=== PATIENT | female | born 1970 | race Caucasian/White ===

== ENCOUNTER 2016-04-27 15:55 | Emergency (ER) | payer MEDICAID, OTHER ==
[~2016-04-27] VITALS: Ht 172.7 cm; Wt 628.2 kg
[2016-04-27] MEDS ORDERED: ONDANSETRON HCL/PF 4 MG/2 ML VIAL IVP ONE (16:30)
[2016-04-27] MEDS ORDERED: IV NS 0.9% 1,000 ML BAG IV ONE (16:30)
[2016-04-27 16:40] LABS: BASOPHILS % (AUTO) 0.6 % (0.0-2.0); DIFF TOTAL % 100 %; EOSINOPHILS # (AUTO) 0.2 /CMM (0.0-0.7); EOSINOPHILS % (AUTO) 1.8 % (0.0-6.0); HEMATOCRIT 41 % (33-45); HEMOGLOBIN 13.7 g/dL (11.5-14.8); LYMPHOCYTES % (AUTO) 22.9 % (20.0-44.0); MEAN CORPUSCULAR HEMOGLOBIN 27 PG (26.0-33.0); MEAN CORPUSCULAR HGB CONC 33 g/dl (31.0-36.0); MEAN CORPUSCULAR VOLUME 80 fL (82-100); MONOCYTES # (AUTO) 0.5 /CMM (0.1-1.30); MONOCYTES % (AUTO) 5.7 % (2.0-12.0); PLATELET COUNT (AUTO) 285 /CMM (150-450); RED BLOOD CELL COUNT(AUTO) 5.16 MIL/uL (4.0-5.2); WHITE BLOOD COUNT (AUTO) 8.7 K/uL (4.3-11.0)
[2016-04-27 17:01] LABS: CALCIUM, SERUM 8.8 mg/dL (8.5-10.1); CREATININE 0.8 mg/dL (0.6-1.3); POTASSIUM 3.8 mmol/L (3.5-5.1)
[2016-04-27 17:08] LABS: ALBUMIN 3.6 g/dL (3.4-5.0); BILIRUBIN,DIRECT 0.1 mg/dL (0.0-0.2); BILIRUBIN,TOTAL 0.3 mg/dL (0.2-1.0); INDIRECT BILIRUBIN 0.2 mg/dL (0.0-1.1); TOTAL PROTEIN, SERUM 7.7 g/dL (6.4-8.2)
[2016-04-27] MEDS ORDERED: IV SET PRIMARY 1 EA INFUS.SET MC ONE (17:33)
[2016-04-27] MEDS ORDERED: IV NS 0.9% 1,000 ML ONE (17:33)
[2016-04-27] MEDS ORDERED: ONDANSETRON HCL/PF 4 MG/2 ML VIAL ONE (17:33)
[2016-04-27 18:03] LABS: KETONES,URINE Trace (NEGATIVE); LEUKOCYTE ESTERASE ,URINE Negative (NEGATIVE)
[2016-04-27 18:09] LABS: ADD UA MICROSCOPIC YES
[2016-04-27] MEDS ORDERED: IOHEXOL-300 100 ML VIAL IV ONE (18:51)
[2016-04-27] MEDS ORDERED: IV NS 0.9% 250 ML IV ONE (18:51)
[2016-04-27] MEDS ORDERED: CT SWABBABLE VALVE TRANS SET 1 EA INFUS.SET MC ONE (18:51)
[2016-04-27 18:52] LABS: ADD URINE CULTURE NO; RBC,URINE 81-100 /HPF (0-2); WBC,URINE 0-2 /HPF (0-3)
[2016-04-27 20:41] VITALS: BP 132/75
== END 2016-04-27 20:42 | disposition home or self-care (01) ==
LOC: ER 15:58
DX: K52.9 Noninfective gastroenteritis and colitis, unspecified (principal); R73.9 Hyperglycemia, unspecified; Z98.890 Other specified postprocedural states
CPT/HCPCS: 36415; 80048-TC; 80076-TC; 81000-TC; 83690-TC; 85025-TC; A4606; J2405; J7030; J7050; Q9967; Z7610

== ENCOUNTER 2018-02-08 00:21 | Emergency (ER) | payer OTHER ==
[~2018-02-08] VITALS: Ht 172.7 cm; Wt 102.1 kg
--- NOTE | 2018-02-08 01:26 | NUR ---
PT AMBULATORY W/ STEADY GAIT, C/O RT LOWER BACK PAIN S/P SLIPPED ON SIDEWALK X LAST WEDNESDAY, DENIES ANY HEAD TRAUMA, NO KO, REPORT PAIN PROGRESSIVELY GETTING WORSE TODAY. URINE OBTAINED & SENT TO LAB. PT IN GOWN, PENDING FURTHER DANILO BEDOLLA MD.
--- NOTE | 2018-02-08 01:45 | NUR ---
HCG WAIVER SIGNED AND GIVEN TO MUD ANALYSIS WELL LOGGING CAPTAIN. PT LEFT FOR CT VIA .
[2018-02-08] MEDS ORDERED: HYDROCODONE/APAP 5/325MG 1 EACH TABLET PO ONE (02:00)
--- NOTE | 2018-02-08 02:08 | NUR ---
PT RETURNED FROM CT.
[2018-02-08] MEDS ORDERED: HYDROCODONE/APAP 5/325MG 1 EACH TABLET ONE (02:09)
--- NOTE | 2018-02-08 02:10 | NUR ---
PT REC'D MEDICATION ORDERED.
--- NOTE | 2018-02-08 03:14 | NUR ---
Patient discharged to home in stable condition. Written and verbal after care instructions given. Patient verbalizes understanding of instruction.
[2018-02-08 03:15] VITALS: BP 142/75
== END 2018-02-08 03:16 | disposition home or self-care (01) ==
LOC: ER 00:21
DX: S39.82XA Other specified injuries of lower back, initial encounter (principal); W01.0XXA Fall on same level from slipping, tripping and stumbling without subsequent striking against object, initial encounter; Y93.89 Activity, other specified; Y92.89 Other specified places as the place of occurrence of the external cause; Y99.8 Other external cause status
CPT/HCPCS: 72131-TC; 72192-TC; A4606; Z7610

== ENCOUNTER 2019-11-08 23:30 | Emergency (ER) | payer OTHER ==
[~2019-11-08] VITALS: Ht 172.7 cm; Wt 102.1 kg
[2019-11-08 23:30] VITALS: BP 146/83
--- NOTE | 2019-11-08 23:53 | NUR ---
PATIENT CAME TO ER BED 9 C/O LOWER BACK PAIN. PATIENT STATES THAT SHE HAS A HERNIATED DISC SINCE 2 YEARS AGO. PATIENT STATES THAT YESTERDAY SHE WAS CARRYING A LOT OF SHOPPING BAGS WHEN HER LOWER BACK STARTED TO HURT. PATIENT STATES THAT SHE FEELS RELIEF WHEN SHE SITS. PATIENT ALSO HAS LEFT WRIST PAIN SINCE YESTERDAY. PAINFUL UPON PALPATION. LESS SENSATION ON THE LEFT HAND AND FOREARM THAN THE RIGHT HAND AND FOREARM. PATIENT HAS FULL RANGE OF MOTION ON THE LEFT AND RIGHT ARM. PULSES ARE STRONG AND EQUAL BILATERALLY.
[2019-11-08] MEDS ORDERED: KETOROLAC TROMETHAMINE INJ 60 MG/2 ML VIAL IM ONE (23:58)
[2019-11-08] MEDS ORDERED: LORAZEPAM INJ 2 MG/ML VIAL ONE (23:59)
[2019-11-09] MEDS ORDERED: LORAZEPAM INJ 2 MG/ML VIAL IM ONE
[2019-11-09] MEDS ORDERED: KETOROLAC TROMETHAMINE INJ 60 MG/2 ML VIAL IM ONE
--- NOTE | 2019-11-09 00:12 | NUR ---
PATIENT'S SON IS DRIVING THE PATIENT HOME.
--- NOTE | 2019-11-09 00:12 | NUR ---
Patient discharged to home in stable condition. Written and verbal after care instructions given. Patient verbalizes understanding of instruction.
== END 2019-11-09 00:13 | disposition home or self-care (01) ==
LOC: ER 23:36
DX: M54.30 Sciatica, unspecified side (principal); G89.29 Other chronic pain
CPT/HCPCS: 96372 ×2; 99284; J1885; J2060

== ENCOUNTER 2020-05-30 17:28 | Emergency (ER) | payer OTHER ==
[~2020-05-30] VITALS: Ht 167.6 cm; Wt 95.3 kg
--- NOTE | 2020-05-30 17:30 | NUR ---
THE PATEINT BIB SELF C/O LOWER BACK PAIN RADIATES TO L BUTTOCKS AREA. PATIENT IS PLACED IN ER BED #1. IN ROOM AIR AND DENIES SOB. RESPIRATION REGULAR AND UNLABORED. WILL CONTINUE TO MONITOR THE PATIENT.
[2020-05-30] MEDS ORDERED: KETOROLAC TROMETHAMINE INJ 30 MG/ML VIAL ONE (17:58)
[2020-05-30] MEDS ORDERED: CYCLOBENZAPRINE 10 MG TABLET ONE (17:58)
[2020-05-30] MEDS: CYCLOBENZAPRINE 10 MG TABLET PO ONE (17:59)
[2020-05-30] MEDS: IV NS 0.9% 1,000 ML BAG IV ONE (18:14)
[2020-05-30] MEDS: KETOROLAC TROMETHAMINE INJ 30 MG/ML VIAL IV ONE (18:15)
[2020-05-30 18:34] LABS: BILIRUBIN,URINE Negative (NEGATIVE); COLOR,URINE YELLOW (YELLOW); LEUKOCYTE ESTERASE ,URINE Negative (NEGATIVE); NITRITE, URINE Negative (NEGATIVE); PROTEIN,URINE Negative (NEGATIVE); UGLUCOSE >=1000 mg/dL (NEGATIVE); UROBILINOGEN,URINE 0.2 EU/dL (0.2)
[2020-05-30 18:48] LABS: BACTERIA,URINE None seen /HPF (None Seen); SQUAMOUS EPITHELIAL CELL,UR Few /HPF (None Seen); WBC,URINE 0-2 /HPF (0-3)
[2020-05-30] MEDS ORDERED: TRAM50TA2 PO (19:04)
[2020-05-30] MEDS ORDERED: CYCL5TAB PO (19:04)
[2020-05-30] MEDS ORDERED: NAPR500T6 PO (19:04)
--- NOTE | 2020-05-30 19:05 | NUR ---
REC;D REPORT FROM JANN SIMS FOR KARISSA
--- NOTE | 2020-05-30 19:26 | NUR ---
Patient discharged to home in stable condition. Written and verbal after care instructions given. Patient verbalizes understanding of instruction. IV removed. Catheter intact and site benign. Pressure and 4x4 applied to site. No bleeding noted. Pt ambulatory with a steady gait
[2020-05-30 19:37] VITALS: BP 150/97
== END 2020-05-30 19:26 | disposition home or self-care (01) ==
LOC: ER 17:32
DX: M54.42 Lumbago with sciatica, left side (principal); E11.65 Type 2 diabetes mellitus with hyperglycemia; I10 Essential (primary) hypertension; Z79.899 Other long term (current) drug therapy
CPT/HCPCS: 81001; 82962; 96361; 96374; 99283; J1885; J7030

== ENCOUNTER 2022-01-11 15:00 | Emergency (ER) | payer OTHER ==
[~2022-01-11] VITALS: Ht 167.6 cm; Wt 99.8 kg
[~2022-01-11 15:00] MED LIST: CYCL5TAB PO; NAPR500T6 PO; TRAM50TA2 PO
--- NOTE | 2022-01-11 15:20 | NUR ---
LAURENT C/O LBP WITH NUMBNESS ON SADA ARMS. DENIES TRAUMA HX OF NEUROPATHY ON ARMS & CHRONIC BP PER PT. AMBULATORY, PLACED ON BED, AAOX4, IN PAIN 12/06 PS.
[2022-01-11] MEDS ORDERED: KETOROLAC TROMETHAMINE 15 MG/ML VIAL ONE (15:56)
[2022-01-11] MEDS ORDERED: ONDANSETRON HCL/PF 4 MG/2 ML VIAL ONE (15:56)
[2022-01-11] MEDS ORDERED: IV NS 0.9% 1,000 ML IV ONE (16:00)
[2022-01-11] MEDS ORDERED: KETOROLAC TROMETHAMINE INJ 30 MG/ML VIAL IV ONE (16:00)
[2022-01-11] MEDS ORDERED: ONDANSETRON HCL/PF 4 MG/2 ML VIAL IV ONE (16:00)
--- NOTE | 2022-01-11 16:10 | NUR ---
blood drawn and sent to lab
[2022-01-11 16:17] LABS: BASOPHILS % (AUTO) 0.3 % (0.0-2.0); HEMATOCRIT 43 % (33-45); LYMPHOCYTES # (AUTO) 1.6 K/uL (0.8-4.8); LYMPHOCYTES % (AUTO) 17.5 % (20.0-44.0); MEAN CORPUSCULAR HGB CONC 33 g/dl (31.0-36.0); MEAN CORPUSCULAR VOLUME 83 fL (82-100); MONOCYTES # (AUTO) 0.4 K/uL (0.1-1.30); MONOCYTES % (AUTO) 4.5 % (2.0-12.0); NEUTROPHILS # (AUTO) 6.8 K/uL (1.8-8.9); NEUTROPHILS % (AUTO) 75.7 % (43.0-81.0); PLATELET COUNT (AUTO) 274 K/uL (150-450); RED BLOOD CELL COUNT(AUTO) 5.18 MIL/uL (4.0-5.2)
[2022-01-11 16:42] LABS: ALBUMIN 3.6 g/dL (3.4-5.0); BILIRUBIN,TOTAL 0.5 mg/dL (0.2-1.0); CALCIUM, SERUM 8.9 mg/dL (8.5-10.1); CREATININE 0.9 mg/dL (0.6-1.3); POTASSIUM 4.2 mmol/L (3.5-5.1)
--- NOTE | 2022-01-11 17:02 | NUR ---
URINE SAMPLE SENT TO LAB
[2022-01-11 17:42] LABS: BILIRUBIN,URINE NEGATIVE (NEGATIVE); COLOR,URINE YELLOW (YELLOW); LEUKOCYTE ESTERASE ,URINE NEGATIVE (NEGATIVE); NITRITE, URINE NEGATIVE (NEGATIVE); PH,URINE 5.5 (5.0-8.0); PROTEIN,URINE NEGATIVE (NEGATIVE); UGLUCOSE >=1000 mg/dL (NEGATIVE); UROBILINOGEN,URINE 0.2 EU/dL (0.2)
[2022-01-11 18:04] LABS: BACTERIA,URINE None seen /HPF (None Seen); RBC,URINE 0-2 /HPF (0-2); SQUAMOUS EPITHELIAL CELL,UR 0-2 /HPF (None Seen); WBC,URINE 0-2 /HPF (0-3)
--- NOTE | 2022-01-11 18:45 | NUR ---
IV removed. Catheter intact and site benign. Pressure and 4x4 applied to site. No bleeding noted.Patient discharged to home in stable condition. Written and verbal after care instructions given. Patient verbalizes understanding of instruction.
[2022-01-11 18:51] VITALS: BP 133/70
== END 2022-01-11 18:45 | disposition home or self-care (01) ==
LOC: ER 15:03
DX: E11.65 Type 2 diabetes mellitus with hyperglycemia (principal); R11.10 Vomiting, unspecified; M54.40 Lumbago with sciatica, unspecified side; Z79.899 Other long term (current) drug therapy
CPT/HCPCS: 99284; 96374; 96361; 96375; 85025; 83690; 81001; 36415; 80053; J2405; J7030; J1885

== ENCOUNTER 2022-04-25 10:06 | Inpatient (IN) | payer OTHER ==
[~2022-04-25] VITALS: Ht 167.6 cm; Wt 121.1 kg
--- NOTE | 2022-04-25 10:21 | NUR ---
BIBS W/ C/O RIGHT-SIDED HEADACHE, RIGHT-SIDED FACE AND ARM NUMBNESS, AND LEFT FACIAL DROOP STARTED AT 3AM YESTERDAY. TO ER BED 9.
[2022-04-25 10:50] LABS: BASOPHILS % (AUTO) 0.3 % (0.0-2.0); EOSINOPHILS % (AUTO) 1.9 % (0.0-6.0); HEMATOCRIT 39 % (33-45); HEMOGLOBIN 12.6 g/dL (11.5-14.8); LYMPHOCYTES # (AUTO) 2.5 K/uL (0.8-4.8); LYMPHOCYTES % (AUTO) 23.6 % (20.0-44.0); MEAN CORPUSCULAR HGB CONC 32 g/dl (31.0-36.0); MEAN CORPUSCULAR VOLUME 83 fL (82-100); MONOCYTES # (AUTO) 0.7 K/uL (0.1-1.30); MONOCYTES % (AUTO) 6.9 % (2.0-12.0); NEUTROPHILS % (AUTO) 67.3 % (43.0-81.0); PLATELET COUNT (AUTO) 268 K/uL (150-450); RED BLOOD CELL COUNT(AUTO) 4.75 MIL/uL (4.0-5.2); WHITE BLOOD COUNT (AUTO) 10.4 K/uL (4.3-11.0)
--- NOTE | 2022-04-25 10:50 | NUR ---
COVID SWAB OBTAINED
--- NOTE | 2022-04-25 10:55 | NUR ---
MOVE SHEET SUBMITTED.
[2022-04-25] MEDS ORDERED: ASPIRIN 325 MG TABLET PO ONE (11:00)
--- NOTE | 2022-04-25 11:00 | NUR ---
NOLA #20 ESTABLISHED, BLOOD DRAWN AND SENT TO LAB
[2022-04-25] MEDS ORDERED: ASPIRIN 325 MG TABLET ONE (11:04)
[2022-04-25 11:14] LABS: CARBON DIOXIDE 25 mmol/L (21-32); CHLORIDE 100 mmol/L (98-107); CREATININE 0.7 mg/dL (0.6-1.3); GLUCOSE 251 mg/dL (74-106); POTASSIUM 4.6 mmol/L (3.5-5.1); SODIUM SERUM 133 mmol/L (136-145); UREA NITROGEN, BLOOD 15 mg/dL (7-18)
[2022-04-25 11:16] LABS: ALANINE AMINOTRANSFERASE 40 U/L (12-78); ALBUMIN 3.2 g/dL (3.4-5.0); ALKALINE PHOSPHATASE 123 U/L (46-116); ASPARTATE AMINOTRANSFERASE 20 U/L (15-37); BILIRUBIN,DIRECT 0.1 mg/dL (0.0-0.2); BILIRUBIN,TOTAL 0.4 mg/dL (0.2-1.0); TOTAL PROTEIN, SERUM 7.6 g/dL (6.4-8.2)
--- NOTE | 2022-04-25 11:38 | NUR ---
URINE SAMPLE OBTAINED AND PLACED IN DROP OFF BIN
[2022-04-25] MEDS ORDERED: IOHEXOL-350 100 ML VIAL IV ONE (11:40)
[2022-04-25 12:03] LABS: BILIRUBIN,URINE NEGATIVE (NEGATIVE); COLOR,URINE YELLOW (YELLOW); LEUKOCYTE ESTERASE ,URINE NEGATIVE (NEGATIVE); NITRITE, URINE NEGATIVE (NEGATIVE); PH,URINE 5.5 (5.0-8.0); PROTEIN,URINE NEGATIVE (NEGATIVE); UGLUCOSE 3+ mg/dL (NEGATIVE); UROBILINOGEN,URINE 0.2 EU/dL (0.2)
--- NOTE | 2022-04-25 12:54 | NUR ---
[facility] CALLED POCKET ASSEMBLER PAGED.
[2022-04-25] MEDS ORDERED: ASPI-1420 PO (13:26)
[2022-04-25] MEDS ORDERED: LURA80TA PO (13:26)
[2022-04-25] MEDS ORDERED: METO-357 PO (13:26)
[2022-04-25] MEDS ORDERED: BENZ0.5T43 PO (13:26)
[2022-04-25] MEDS ORDERED: TRAZ-257 PO (13:26)
[2022-04-25] MEDS ORDERED: INSU500I SQ (13:26)
[2022-04-25] MEDS ORDERED: ERTU15TA PO (13:26)
[2022-04-25] MEDS ORDERED: OMEP40CA21 PO (13:26)
[2022-04-25] MEDS ORDERED: GLIM4TAB37 PO (13:26)
[2022-04-25] MEDS ORDERED: GABA300C PO (13:26)
[2022-04-25] MEDS ORDERED: SERT100T12 PO (13:26)
--- NOTE | 2022-04-25 13:51 | NUR ---
REPORT GIVEN TO JANN GLORIA IN 3W
[2022-04-25 14:00] VITALS: BP 151/84
[2022-04-25] MEDS ORDERED: ONDANSETRON HCL/PF 4 MG/2 ML VIAL IVP PRN (14:00)
[2022-04-25] MEDS ORDERED: ACETAMINOPHEN 325 MG TABLET PO PRN (14:00)
[2022-04-25] MEDS ORDERED: DEXTROSE 50%-WATER 50 ML DISP.SYRIN IV PRN (14:00)
--- NOTE | 2022-04-25 14:00 | NUR ---
PATIENT ADMITTED FROM ER WITH CHANDANA REPORTED BY GABY /ER. ADMIT DX IS R/O CVA. PATIENT AO X 4 WITH COHERENT SPEECH AND GOOD HISTORIAN RESPONSIBLE. PATIENT DENIES ALL EXTREMITIES WEAKNESS AND STABLE AMBULATE, BUT FACIAL NUMBNESS ON RIGHT SIDE AND RIGHT EYE DOUBLE VISION. VISUAL FIELD/CONFRONTATION, NEURO CHECK AND NHISS DONE. WILL CONTINUE TO MONITOR.
--- NOTE | 2022-04-25 14:05 | NUR ---
PATIENT TRANSFERRED TO [facility], ALL CARE ENDORSED TO JANN GLORIA
[2022-04-25] MEDS: HYDROCODONE/APAP 5/325MG TABLET PO PRN ×2 (14:55→21:41)
[2022-04-25] MEDS ORDERED: ENOXAPARIN SODIUM 40 MG/0.4 ML DISP.SYRIN SQ SCH (15:00)
[2022-04-25] MEDS: ASPIRIN 81 MG TAB.CHEW PO SCH (15:24)
[2022-04-25] MEDS: predniSONE 20 MG TABLET PO SCH (15:26)
[2022-04-25 16:00] VITALS: BP 160/87
[2022-04-25] MEDS: GLIMEPIRIDE 4 MG TABLET PO SCH (17:30)
[2022-04-25] MEDS: GABAPENTIN 300 MG CAPSULE PO SCH (17:30)
[2022-04-25] MEDS: SERTRALINE HCL 50 MG TABLET PO SCH (17:30)
[2022-04-25] MEDS: INSULIN REGULAR, HUMAN 100 UNIT/ML 3 ML VIAL SQ PRN ×2 (17:31→21:43)
[2022-04-25] MEDS: BLOOD SUGAR DIAGNOSTIC 1 EACH STRIP IN SCH ×2 (17:32→21:42)
[2022-04-25] MEDS ORDERED: LURASIDONE HCL PO SCH ×2 (18:00→20:00)
--- NOTE | 2022-04-25 18:30 | NUR ---
RN CLOSING NOTE PATIENT RESTING IN BED. IN NO ACUTE DISTRESS. RESPIRATORY EVEN AND UNLABORED IN ROOM AIR. IN NO RESPIRATORY DISTRESS NOTED. SKIN IS WARM TO TOUCH KEEP CLEAN/DRY. KEPT ELEVATED HOB FOR ENSURE AIRWAY/ASPIRATION PRECAUTION, AND LOWEST BED POSITION. BED ALARM IS ON AT ALL THE TIME FOR SAFETY. CONTINUE TO MONITOR NEURO CHECK. CALL LIGHT WITHIN REACH, WILL ENDORSE HEAD OF MOBILE.
--- NOTE | 2022-04-25 19:30 | NUR ---
DIRECTOR EXPORT OPENING NOTE RECEIVED PATIENT IN BED AWAKE .PATIENT IS A/O TIMES 4. GERMAN /HUNGARIAN SPEAKER. ABLE TO MAKE NEEDS KNOWN. NO ACUTE DISTRESS NOTED. RESPIRATION EVEN AND UNLABORED IN ROOM AIR. NO RESPIRATORY DISTRESS NOTED. ABLE TO MAKE NEEDS KNOWN. ON TELE MONITOR READING SR. IV ACCESS ON THE LAC G # 20 INTACT AND SL. AMBULATORY AND ABLE TO WALK WITHOUT ASSISTANCE. NOTED WITH LEFT LIP DROOP AND RIGHT EYE WATERY COMPLAINS. NEURO ASSESSMENT DONE. NO NEW CHANGE IN CONDITION NOTED. EDUCATE THE PATIENT TO PRESS CALL LIGHT IF ANY NEW SYMPTOMS NOTED. PATIENT ABLE TO MOVE ALL EXTREMITIES AND ABLE TO WALK AND TALK NORMALLY. ALL SAFETY MEASURES IN PLACE. BED LOCKED IN THE LOWEST POSITION. CALL LIGHT AND TABLE IN EASY REACH. WILL CONTINUE TO MONITOR CLOSELY.
[2022-04-25 20:00] VITALS: BP 160/90
--- NOTE | 2022-04-25 21:41 | NUR ---
RN NOTES PATIENT COMPLAINS OF 7/10 RIGHT SIDE OF HEADACHE. PRN NORCO 5/325 MG PO GIVEN AT 2141 FOR PAIN. WILL REASSESS IN 1 HOUR FOR PAIN.
[2022-04-25] MEDS ORDERED: TRAZODONE 50 MG TABLET PO SCH (22:00)
[2022-04-26] VITALS: BP 156/91
[2022-04-26 04:00] VITALS: BP 149/90
[2022-04-26] MEDS: BLOOD SUGAR DIAGNOSTIC 1 EACH STRIP IN SCH ×2 (05:54→11:34)
[2022-04-26] MEDS: INSULIN REGULAR, HUMAN 100 UNIT/ML 3 ML VIAL SQ PRN ×2 (05:56→11:44)
[2022-04-26 06:23] LABS: BASOPHILS % (AUTO) 0.3 % (0.0-2.0); EOSINOPHILS % (AUTO) 0.2 % (0.0-6.0); HEMATOCRIT 38 % (33-45); HEMOGLOBIN 12.2 g/dL (11.5-14.8); LYMPHOCYTES # (AUTO) 1.9 K/uL (0.8-4.8); LYMPHOCYTES % (AUTO) 16.2 % (20.0-44.0); MEAN CORPUSCULAR HGB CONC 32 g/dl (31.0-36.0); MEAN CORPUSCULAR VOLUME 82 fL (82-100); MONOCYTES # (AUTO) 0.7 K/uL (0.1-1.30); MONOCYTES % (AUTO) 5.9 % (2.0-12.0); NEUTROPHILS % (AUTO) 77.4 % (43.0-81.0); PLATELET COUNT (AUTO) 293 K/uL (150-450); RED BLOOD CELL COUNT(AUTO) 4.66 MIL/uL (4.0-5.2); WHITE BLOOD COUNT (AUTO) 11.7 K/uL (4.3-11.0)
[2022-04-26 06:37] LABS: CALCIUM, SERUM 8.9 mg/dL (8.5-10.1); CREATININE 0.7 mg/dL (0.6-1.3); MAGNESIUM 2.1 mg/dL (1.8-2.4); PHOSPHORUS 4.2 mg/dL (2.5-4.9); POTASSIUM 4.2 mmol/L (3.5-5.1)
--- NOTE | 2022-04-26 06:44 | NUR ---
MEAT LOINER CLOSING NOTE PATIENT IN BED SLEEPS. OPENS HER EYES UPON CALLING HER NAME.PATIENT IS A/O TIMES 4. YI /DOMINICAN SPEAKER. ABLE TO MAKE NEEDS KNOWN. NO ACUTE DISTRESS NOTED. RESPIRATION EVEN AND UNLABORED IN ROOM AIR. NO RESPIRATORY DISTRESS NOTED. ABLE TO MAKE NEEDS KNOWN. ON TELE MONITOR READING ST 105. IV ACCESS ON THE LAC G # 20 INTACT AND SL. AMBULATORY AND ABLE TO WALK WITHOUT ASSISTANCE. NOTED WITH LEFT LIP DROOP AND RIGHT EYE WATERY COMPLAINS. NEURO ASSESSMENT DONE. NO NEW CHANGE IN CONDITION NOTED. EDUCATE THE PATIENT TO PRESS CALL LIGHT IF ANY NEW SYMPTOMS NOTED. PATIENT ABLE TO MOVE ALL EXTREMITIES AND ABLE TO WALK AND TALK NORMALLY. ALL DUE MEDS GIVEN ORDERED. ALL SAFETY MEASURES IN PLACE. BED LOCKED IN THE LOWEST POSITION. CALL LIGHT AND TABLE IN EASY REACH. WILL ENDORSE FOR KARISSA.
[2022-04-26] MEDS ORDERED: PANTOPRAZOLE 40 MG TABLET.DR PO SCH (07:30)
--- NOTE | 2022-04-26 07:45 | NUR ---
P D DRIVER OPENING NOTE PATIENT IN BED RESTING. OPENS HER EYES UPON CALLING HER NAME. PATIENT IS A/O X4. AMHARIC /ARABIC SPEAKER. ABLE TO MAKE NEEDS KNOWN. NO ACUTE DISTRESS NOTED. RESPIRATION EVEN AND UNLABORED IN ROOM AIR. NO RESPIRATORY DISTRESS NOTED. ABLE TO MAKE NEEDS KNOWN. ON TELE MONITOR READING ST 108. IV ACCESS ON THE LAC G # 20 INTACT AND SL. AMBULATORY AND ABLE TO WALK WITHOUT ASSISTANCE. NOTED WITH LEFT LIP DROOP AND RIGHT EYE WATERY COMPLAINS. NEURO ASSESSMENT DONE. NO NEW CHANGE IN CONDITION NOTED. EDUCATE THE PATIENT TO PRESS CALL LIGHT SHOULD SHE NEED ANYTHING. PATIENT ABLE TO MOVE ALL EXTREMITIES AND ABLE TO WALK AND TALK NORMALLY. ALL SAFETY MEASURES IN PLACE. BED LOCKED IN THE LOWEST POSITION. CALL LIGHT AND TABLE IN EASY REACH. WILL CONTINUE TO MONITOR.
[2022-04-26 08:00] VITALS: BP 119/79
[2022-04-26] MEDS: SERTRALINE HCL 50 MG TABLET PO SCH (08:24)
[2022-04-26] MEDS: ASPIRIN 81 MG TAB.CHEW PO SCH (08:24)
[2022-04-26] MEDS: predniSONE 20 MG TABLET PO SCH (08:24)
[2022-04-26] MEDS: GABAPENTIN 300 MG CAPSULE PO SCH ×2 (08:24→12:09)
[2022-04-26 08:25] VITALS: BP 119/79
[2022-04-26] MEDS: GLIMEPIRIDE 4 MG TABLET PO SCH (08:25)
[2022-04-26] MEDS ORDERED: ERTUGLIFLOZIN PIDOLATE PO SCH (09:00)
[2022-04-26] MEDS ORDERED: METOPROLOL SUCCINATE 50 MG TAB.SR.24H PO SCH (09:00)
[2022-04-26] MEDS ORDERED: BENZTROPINE MESYLATE (1 MG) 1 MG TABLET PO SCH (09:00)
[2022-04-26] MEDS ORDERED: PRED20TA PO (13:44)
[2022-04-26] MEDS ORDERED: PRED5TAB PO (13:44)
--- NOTE | 2022-04-26 15:20 | NUR ---
SENIOR MAINTENANCE TECHNICIAN DISCHARGE NOTE PT DISCHARGED TO HOME IN STABLE CONDITION. A/OX4 MONGOLIAN AND GREENLANDIC SPEAKING. ABLE TO MAKE NEEDS KNOWN. PT ON ROOM AIR EVEN AND NON LABORED, IN NO RESPIRATORY DISTRESS. LAST TELE READING WAS SR 100 BPM. VITAL SIGNS TAKEN. STABLE. RECORDED. PTS SKIN INTACT. PT DENIES PAIN AT THIS TIME, JUST DISCOMFORT FROM DROOPING. ALL BELONGINGS ACCOUNTED FOR INCLUDING MONEY, JEWLERY, CREDIT CARDS, AND BAG WITNESSED BY DEPARTMENT COORDINATOR. DISCHARGE INSTRUCTIONS RELAYED TO PATIENT INCLUDING MEDICATION DIRECTIONS. IV ACCESS REMOVED, ID WRIST BAND REMOVED. PT LEFT UNIT AT 1518 WALKING ACCOMPANIED BY DEPARTMENT COORDINATOR. CHARGE AND MD MADE AWARE OF DISCHARGE.
== END 2022-04-26 15:30 | disposition home or self-care (01) | DRG 48 ==
LOC: ER 10:13 → TELE 13:33
PROVIDERS: ADMIT Nurse Practitioner Acute Care; ATTEND Nurse Practitioner Acute Care
DX: G51.0 Bell's palsy (principal); D68.59 Other primary thrombophilia; E44.1 Mild protein-calorie malnutrition; E88.09 Other disorders of plasma-protein metabolism, not elsewhere classified; E87.1 Hypo-osmolality and hyponatremia; E11.9 Type 2 diabetes mellitus without complications; E66.01 Morbid (severe) obesity due to excess calories; Z68.41 Body mass index [BMI] 40.0-44.9, adult; Z20.822 Contact with and (suspected) exposure to COVID-19; Z79.4 Long term (current) use of insulin; E78.5 Hyperlipidemia, unspecified; I10 Essential (primary) hypertension; Z79.82 Long term (current) use of aspirin; Z79.84 Long term (current) use of oral hypoglycemic drugs; Z79.899 Other long term (current) drug therapy; R29.702 NIHSS score 2; F43.10 Post-traumatic stress disorder, unspecified; F32.A Depression, unspecified; F41.9 Anxiety disorder, unspecified
CPT/HCPCS: 36415; 70450-TC; 70496-TC; 70498-TC; 71045-TC; 80048-TC; 80061-TC; 80076-TC; 82962-TC; 83735-TC; 84100-TC; 84484-TC; 85025-TC; 85730-TC; 87081-TC; 92526; 92611-TC; 93307-TC; 97112-TC; 97116-TC; 97530-TC; C9803; G0378; J1650; J1815; Q9967

== ENCOUNTER 2022-05-01 17:00 | Emergency (ER) | payer OTHER ==
[~2022-05-01] VITALS: Ht 167.6 cm; Wt 108.9 kg
[~2022-05-01 17:00] MED LIST changes: +ASPI-1420 PO; +BENZ0.5T43 PO; -CYCL5TAB PO; +ERTU15TA PO; +GABA300C PO; +GLIM4TAB37 PO; +INSU500I SQ; +LURA80TA PO; +METO-357 PO; -NAPR500T6 PO; +OMEP40CA21 PO; +PRED20TA PO; +PRED5TAB PO; +SERT100T12 PO; -TRAM50TA2 PO; +TRAZ-257 PO
--- NOTE | 2022-05-01 17:33 | NUR ---
RECEIVED PT IN ROOM ER 3 , PT IS A/Ox4, C/O PAIN ON RIGHT SIDE OF HER BODY 10/05 , RIGHT SIDE FACIAL DROOP NOTED, HR IN 110'S , PT CRYING, EMOTIONAL SUPPORT GIVEN , CONTINUE TO MONITOR
--- NOTE | 2022-05-01 17:36 | NUR ---
DR VASQUEZ SEEN PT
[2022-05-01] MEDS ORDERED: PRED1TAB PO (17:41)
--- NOTE | 2022-05-01 18:21 | NUR ---
PT TO MRI AT THIS TIME
--- NOTE | 2022-05-01 20:00 | NUR ---
Patient discharged to home in stable condition. Written and verbal after care instructions given. Patient verbalizes understanding of instruction.
[2022-05-01 20:01] VITALS: BP 121/66
[2022-05-01] MEDS ORDERED: CARB30DR RIGHTEYE (20:09)
== END 2022-05-01 20:02 | disposition home or self-care (01) ==
LOC: ER 17:10
DX: G51.0 Bell's palsy (principal); H04.121 Dry eye syndrome of right lacrimal gland; E11.9 Type 2 diabetes mellitus without complications; Z79.899 Other long term (current) drug therapy
CPT/HCPCS: 70551-TC

== ENCOUNTER 2022-07-14 22:09 | Emergency (ER) | payer OTHER ==
[~2022-07-14] VITALS: Ht 167.6 cm; Wt 114.8 kg
[~2022-07-14 22:09] MED LIST changes: +CARB30DR RIGHTEYE; +PRED1TAB PO; -PRED5TAB PO
[2022-07-14 22:56] VITALS: BP 156/83
[2022-07-14] MEDS ORDERED: CYCL15CA23 PO (23:06)
[2022-07-14] MEDS ORDERED: PRED50TA PO (23:06)
[2022-07-14] MEDS ORDERED: IBUP-1957 PO (23:06)
[2022-07-14] MEDS ORDERED: HYDR-3972 PO (23:06)
[2022-07-14] MEDS ORDERED: DEXAMETHASONE SOD PHOSPHATE 10 MG/ML VIAL ONE (23:12)
[2022-07-14] MEDS ORDERED: CARISOPRODOL 350 MG TABLET ONE (23:12)
[2022-07-14] MEDS ORDERED: MORPHINE SULFATE INJ 4 MG/ML DISP.SYRIN ONE (23:13)
[2022-07-14] MEDS ORDERED: CARISOPRODOL 350 MG TABLET PO ONE (23:30)
[2022-07-14] MEDS ORDERED: MORPHINE SULFATE INJ 2 MG/ML DISP.SYRIN IM ONE (23:30)
[2022-07-14] MEDS ORDERED: DEXAMETHASONE SOD PHOSPHATE 4 MG/ML VIAL IM ONE (23:30)
== END 2022-07-14 23:20 | disposition home or self-care (01) ==
LOC: ER 22:12
DX: M54.41 Lumbago with sciatica, right side (principal); E11.9 Type 2 diabetes mellitus without complications; F32.A Depression, unspecified; Z79.899 Other long term (current) drug therapy; Z79.82 Long term (current) use of aspirin; Z79.4 Long term (current) use of insulin
CPT/HCPCS: 99284; 96372 ×2; J1100; J2270